=== PATIENT | male | born 1980 | race African-American/Black ===

== ENCOUNTER 2022-03-15 10:51 | Emergency (ER) | payer OTHER ==
[~2022-03-15] VITALS: Ht 172.7 cm; Wt 95.0 kg
[2022-03-15 10:58] VITALS: BP 130/94
[2022-03-15] MEDS ORDERED: FLUORESCEIN SODIUM 1MG/STRIP LEFTEYE ONE (12:30)
[2022-03-15] MEDS ORDERED: TETRACAINE 0.5% OPHTH DROPS 4ML LEFTEYE ONE (12:30)
[2022-03-15] MEDS ORDERED: CIPR5DRO LEFTEYE (13:21)
== END 2022-03-15 13:47 | disposition home or self-care (01) ==
LOC: ER 10:51
DX: H18.602 Keratoconus, unspecified, left eye (principal); H18.20 Unspecified corneal edema; I10 Essential (primary) hypertension
CPT/HCPCS: 99281